=== PATIENT | male | born 1955 | race Hispanic/Latino ===

== ENCOUNTER 2017-06-14 11:34 | Emergency (ER) | payer BC ==
[2017-06-14 11:44] VITALS: BP 129/78; PULSE 69; RESP 18; TEMP 97.7; O2SAT 94
[2017-06-14] MEDS ORDERED: Tetanus/Diphtheria Toxoids 0.5 ml Syringe IM ONE ×2 (11:44→11:49)
[2017-06-14] MEDS ORDERED: Lidocaine 1% Inj (20ml) INFIL STA (11:45)
[2017-06-14] MEDS ORDERED: Bacitracin 500 Units/gm Oint Foilpak UD TOP ONE (11:45)
[2017-06-14] MEDS ORDERED: Lidocaine Hydrochloride 5 ML INJ ONE (11:48)
--- NOTE | 2017-06-14 11:50 | C.PDOC ---
History Of Present Illness 61-year-old male presents to the emergency department for evaluation of a wound to his left hand, sustained today. Patient states he was using a screw utility worker driver and it accidentally slipped, resulting in a puncture wound to the center of his left palm. Now complaining of pain and swelling to the hand. No numbness or tingling. Patient is still able to make a fist and move all digits. Time Seen by Provider: 06/14/17 11:43 Chief Complaint (Nursing): Upper Extremity Problem/Injury History Per: Patient History/Exam Limitations: no limitations Onset/Duration Of Symptoms: Hrs Current Symptoms Are (Timing): Still Present Past Medical History Reviewed: Historical Data, Nursing Documentation, Vital Signs Vital Signs: Last Vital Signs Temp 97.7 F 06/14/17 11:44 Pulse 69 06/14/17 11:44 Resp 18 06/14/17 11:44 BP 129/78 06/14/17 11:44 Pulse Ox 94 L 06/14/17 11:54 - Medical History PMH: No Chronic Diseases Surgical History: No Surg Hx Family History: States: No Known Family Hx - Social History Hx Tobacco Use: No Hx Alcohol Use: Yes Hx Substance Use: No - Immunization History Hx Tetanus Toxoid Vaccination: No Hx Influenza Vaccination: No Hx Pneumococcal Vaccination: No Review Of Systems Musculoskeletal: Positive for: Hand Pain (left hand swelling and pain) Skin: Positive for: Lesions (wound to left palm) Neurological: Negative for: Weakness, Numbness Physical Exam - Physical Exam Appears: Well, Non-toxic, No Acute Distress Skin: Normal Color, Warm, Dry Extremity: Normal ROM (with full ROM of all digits), Swelling (and ecchymosis to dorsal aspect of left hand), Other (1 cm puncture wound to palmar aspect of left hand, no active bleeding) Neurological/Psych: Oriented x3, Normal Speech, Normal Motor, Normal Sensation ED Course And Treatment O2 Sat by Pulse Oximetry: 94 (RA) Laceration - Laceration Repair left palm Wound Length (In cm): 1 Description Of Wound: Linear, Clean Wound Cleansed With: Sterile Saline Anesthesia: Lidocaine 1% Wound Examination: Irrigated With Saline (1L), No FB With Wound Exploration, No Tendon Injury With Wound Exploration Wound Closure: Suture Suture Technique And Material Used: Interrupted (2), Nylon (4-0) Wound Complexity: Simple Medical Decision Making Medical Decision Making: Impression: 61 year old with puncture wound to left hand Time: 11:45 Initial Plan: * Tramadol 50 mg PO * Tetanus vaccine * Ice pack applied to hand * X-ray of left hand * Lidocaine 1% ordered for wound repair Xray viewed showing soft tissue swelling, no fracture Laceration repair performed by DEBRA Bacitracin and dressing applied. Patient instructed on wound care. Disposition Counseled Patient/Family Regarding: Diagnosis, Need For Followup - Disposition Disposition: HOME/ ROUTINE Disposition Time: 12:14 Condition: STABLE Forms: [facility] [employer] (Armenian) - POA Present On Arrival: None - Clinical Impression Clinical Impression: Hand laceration, Hand contusion - PA / DISTRIBUTION OPERATION SUPERVISOR / Resident Statement MD/DO has reviewed & agrees with the documentation as recorded. - Scribe Statement The provider has reviewed the documentation as recorded by the Scribe (Marsha Montanez) All medical record entries made by the Scribe were at my direction and personally dictated by me. I have reviewed the chart and agree that the record accurately reflects my personal performance of the history, physical exam, medical decision making, and the department course for this patient. I have also personally directed, reviewed, and agree with the discharge instructions and disposition.
[2017-06-14] MEDS ORDERED: Bacitracin 500 Units/gm Oint Foilpak UD ONE (12:11)
--- NOTE | 2017-06-14 13:05 | RAD ---
PROCEDURE: Left Hand Radiographs. HISTORY: injury to hand from screwdriver, punture wound COMPARISON: None. FINDINGS: BONES: . No fracture. No cortical interruption. 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 Distal interphalangeal joint space narrowing with spurring also noted diffuse SOFT TISSUES: Dorsal soft tissue swelling OTHER FINDINGS: 3 x 4 mm calcific and/or bony like density projects over the base of the 2nd metatarsal multiple views - sesamoid bone an a bone island are considerations most likely here. IMPRESSION: No fracture or posttraumatic cortical interruption. No radiopaque foreign body noted. Wrist and hand arthrosis
== END 2017-06-14 12:33 | disposition home or self-care (01) ==
LOC: C.ER 11:34
DX: S61.412A Laceration without foreign body of left hand, initial encounter (principal); W27.0XXA Contact with workbench tool, initial encounter; Z23 Encounter for immunization